=== PATIENT | female | born 1935 | race Caucasian/White ===

== ENCOUNTER 2018-10-01 10:50 | Observation (INO) ==
[2018-10-01] MEDS ORDERED: ONDANSETRON 4 MG/2 ML VIAL IV PRN (17:15)
[2018-10-01] MEDS ORDERED: ACETAMINOPHEN 325 MG TABLET PO PRN (17:15)
[2018-10-01] MEDS ORDERED: MORPHINE 4 MG/1 ML VIAL IV PRN (18:05)
[2018-10-01] MEDS: SODIUM CHLORIDE 0.9% 1,000 ML IV SCH (18:06)
[2018-10-02 05:28] LABS: Basophils % 0.4 % (0.0-0.8); Eosinophils # 0.2 10*3/uL (0.0-0.87); Eosinophils % 2.4 % (0.00-10.9); Hematocrit 33.2 VOL% (35.7-47.0); Hemoglobin 10.5 GM/DL (12.0-16.0); Immature Granulocytes % 0.5 %; Immature Granulocytes Absolute 0.04 #; Lymphocytes # 1.5 10*3/uL (1.4-4.0); Lymphocytes % 19.4 % (21.3-54.2); Mean Corpuscular HGB Conc 31.6 GM/DL (32-36); Mean Corpuscular Volume 95.4 FL (87-102); Mean Platelet Volume 10.3 FL (9.6-12.0); Monocytes % 9.6 % (1.7-12.7); Neutrophils % 67.7 % (38.7-73.9); Platelet Count 275 T/CUMM (130-400); Red Blood Count 3.48 MC/CUMM (3.8-5.5); Red Cell Distribution Width 12.5 % (9.3-17.3); White Blood Count 7.6 T/CUMM (4-12)
[2018-10-02 05:54] LABS: Calcium 8.9 MG/DL (8.5-10.1); Osmolality,Calculated 279.4 MOS/KG (273-304)
[2018-10-02 08:42] LABS: Albumin 2.8 G/DL (3.4-5.0); Bilirubin,Direct 0.22 MG/DL (0.0-0.20); Bilirubin,Indirect 0.4 MG/DL (0.0-1.0); Bilirubin,Total 0.6 MG/DL (0.2-1.0); Total Protein 5.8 G/DL (6.4-8.3)
[2018-10-02] MEDS ORDERED: ceFAZolin 1,000 MG in SYRINGE 1 EACH IV ONE (10:00)
[2018-10-02] MEDS ORDERED: hydrALAZINE 20 MG/1 ML VIAL IV PRN (12:27)
[2018-10-02] MEDS: SODIUM CHLORIDE 0.9% 1,000 ML IV SCH ×2 (14:06→19:59)
[2018-10-02] MEDS ORDERED: BUPIVACAINE MPF 0.25% 30 ML VIAL ONE (14:16)
[2018-10-02] MEDS ORDERED: LIDOCAINE 1% 20 ML VIAL ONE (14:16)
[2018-10-02] MEDS ORDERED: TISSUE ADHESIVE 1 EACH APPLICATOR TOP ONE (16:11)
[2018-10-02] MEDS ORDERED: PROPOFOL 200 MG/20 ML VIAL IV ONE (16:30)
[2018-10-02] MEDS ORDERED: fentaNYL 100 MCG/2 ML VIAL ONE (16:30)
[2018-10-02] MEDS ORDERED: ONDANSETRON 4 MG/2 ML VIAL ONE (16:30)
[2018-10-02] MEDS ORDERED: SEVOFLURANE 1 UNIT/15 MINUTE INH ONE (16:30)
[2018-10-02] MEDS ORDERED: ETOMIDATE 40 MG/20 ML VIAL IV ONE (16:31)
[2018-10-02] MEDS ORDERED: NEOSTIGMINE 10 MG/10 ML VIAL ONE (16:31)
[2018-10-02] MEDS ORDERED: ROCURONIUM 100 MG/10 ML VIAL IV ONE (16:31)
[2018-10-02] MEDS ORDERED: GLYCOPYRROLATE 0.4 MG/2 ML VIAL ONE (16:31)
[2018-10-02] MEDS ORDERED: hydrALAZINE 20 MG/1 ML VIAL IV ONE (16:54)
[2018-10-02] MEDS ORDERED: hydrALAZINE 20 MG/1 ML VIAL ONE (16:55)
[2018-10-02] MEDS: MECLIZINE 12.5 MG TABLET PO SCH (19:16)
[2018-10-02] MEDS: ASPIRIN EC 81 MG TABLET PO SCH (19:16)
[2018-10-02] MEDS: CALCIUM (CARBONATE)/VITAMIN D 500 MG-200 UNIT TABLET PO SCH (19:16)
[2018-10-02] MEDS: FERROUS SULFATE 325 MG TABLET PO SCH (19:16)
[2018-10-02] MEDS: METOPROLOL SUCCINATE XL 25 MG TABLET PO SCH (19:17)
[2018-10-02] MEDS: PANTOPRAZOLE 40 MG TABLET PO SCH (19:17)
[2018-10-03 06:03] LABS: Basophils % 0.2 % (0.0-0.8); Eosinophils % 0.1 % (0.00-10.9); Hematocrit 31.4 VOL% (35.7-47.0); Hemoglobin 9.9 GM/DL (12.0-16.0); Immature Granulocytes % 0.5 %; Immature Granulocytes Absolute 0.05 #; Lymphocytes # 1.2 10*3/uL (1.4-4.0); Lymphocytes % 11.2 % (21.3-54.2); Mean Corpuscular HGB Conc 31.5 GM/DL (32-36); Mean Corpuscular Volume 94.3 FL (87-102); Mean Platelet Volume 10.3 FL (9.6-12.0); Monocytes % 6.5 % (1.7-12.7); Neutrophils % 81.5 % (38.7-73.9); Platelet Count 239 T/CUMM (130-400); Red Blood Count 3.33 MC/CUMM (3.8-5.5); Red Cell Distribution Width 12.5 % (9.3-17.3); White Blood Count 10.5 T/CUMM (4-12)
[2018-10-03 06:20] LABS: Calcium 8.6 MG/DL (8.5-10.1); Osmolality,Calculated 278.4 MOS/KG (273-304)
[2018-10-03 07:42] VITALS: BP 152/62
[2018-10-03] MEDS: CALCIUM (CARBONATE)/VITAMIN D 500 MG-200 UNIT TABLET PO SCH (09:22)
[2018-10-03] MEDS: METOPROLOL SUCCINATE XL 25 MG TABLET PO SCH (09:22)
[2018-10-03] MEDS: ASPIRIN EC 81 MG TABLET PO SCH (09:22)
[2018-10-03] MEDS: PANTOPRAZOLE 40 MG TABLET PO SCH (09:23)
[2018-10-03] MEDS: FERROUS SULFATE 325 MG TABLET PO SCH (09:23)
[2018-10-03] MEDS: MECLIZINE 12.5 MG TABLET PO SCH (09:25)
== END 2018-10-03 10:07 | disposition home health service (06) ==
LOC: N.2E → SUATTDRO 15:23
PROVIDERS: ADMIT Internal Medicine; ATTEND Internal Medicine Geriatric Medicine
PROC: LAPCHOL (2018-10-02 15:16)